=== PATIENT | male | born 1955 | race Caucasian/White ===

== ENCOUNTER 2017-04-08 16:30 | Inpatient (IN) | payer MEDICAID ==
[~2017-04-08] VITALS: Ht 170.2 cm; Wt 63.1 kg
--- NOTE | ~2017-04-08 | ENPV ---
Carotid Duplex Study Demographics Patient Name PHILLIP NOONAN Date of Study 04/11/2017 Patient Number [id number] Gender Male Date of 1955 Age 62 Visit Number [id number] Height 67 Accession Number [id number] Weight 139 Referring Candi Taylor MD Physician Jorge Rogers Physician Physician Ordering Physician Candi Roblero Field Underwriter Manager Molecular Stephon Pastrana, T Conclusions Summary Bilateral proximal internal carotid arteries have mild, 1-39%, stenosis by heterogeneous plaque. Bilateral vertebral arteries are antegrade. Procedure Type of Study: Cerebral:Carotid, Carotid Doppler Bilateral. Indications for Study:Stroke. Appropriate Use Criteria:9 Blood Pressure:Right arm 140/80 mmHg.Left arm 135/71 mmHg. Patient Status:Routine. Study Location:Inpatient Portable. Technical Quality:Adequate visualization. Velocities are measured in cm/s ; Diameters are measured in cm Carotid Right Measurements Carotid Left Measurements + +--------+--------+ + + + +--------+ --------+ + + !Location !PSV !EDV !Angle !%Stenosis ! !Location !PSV ! EDV !Angle !%Stenosis ! + +--------+--------+ + + + +--------+ --------+ + + !Prox CCA !97 !14 !60 ! ! !Prox CCA !78 ! 11 !48 ! ! + +--------+--------+ + + + +--------+ --------+ + + !Dist CCA !86 !14 !54 ! ! !Dist CCA !80 ! 18 !52 ! ! + +--------+--------+ + + + +--------+ --------+ + + !Prox ICA !80 !15 !60 !1-39% ! !Prox ICA !70 ! 18 !48 !1-39% ! + +--------+--------+ + + + +--------+ --------+ + + !Dist ICA !81 !26 !44 ! ! !Dist ICA !82 ! 24 !60 ! ! + +--------+--------+ + + + +--------+ --------+ + + !Prox ECA !100 ! !60 ! ! !Prox ECA !89 ! !60 ! ! + +--------+--------+ + + + +--------+ --------+ + + !Vertebral !60 ! !60 ! ! !Vertebral !48 ! !44 ! ! + +--------+--------+ + + + +--------+ --------+ + + !Subclavian !124 ! ! ! ! !Subclavian !120 ! ! ! ! + +--------+--------+ + + + +--------+ --------+ + + - There is antegrade vertebral flow noted on the right side. - There is antegrade verte bral flow noted on the left side. - Add'l Measurements:ICAPSV/CCAPSV 0.83.ICAEDV/CCAEDV 1.9. - Add'l Measurements:ICAPS V/CCAPSV 1.05.ICAEDV/CCAEDV 2.19. Signature dtt: DAVID MALDONADO dtd: 04/11/17 0730 Physician Self Edit
--- NOTE | ~2017-04-08 | CON ---
PATIENT'S NAME: SHAISTA PHILLIP [facility] AGE: 62 Y [address] ROOM: [id number] [place], [place] [address] LOCATION: [facility] ADMIT DATE: 04/08/2017 Consultation DISCHARGE DATE: FAMILY PHYSICIAN: PHYSICIAN, UNKNOWN ATTENDING PHYSICIAN: Ken PATEL REFERRING PHYSICIAN: JENNIFER EVANS MD A consult for hospitalist, Dr. Ken Patel. HISTORY OF PRESENT ILLNESS: This 62-year-old gentleman is referred for rehab/GIRP evaluation, admitted on 04/08 to [facility], referred from [place], [place]. As per history, he was noticed, in about 2 days' duration, initially started as having difficulty with using the left hand, and eventually it was noticed that his speech was also gibberish and at times not very understandable with inability to concentrate and use his left hand. He was having, as per history, some drinks, celebrating Father's Day 2 days earlier when he came to visit his family from [place], and eventually this happened. He was taken to [place] and was evaluated there, and by the time he was referred here, his son-in-law is telling me that his symptoms cleared. He is still confused a little bit, cannot remember details. PAST MEDICAL HISTORY: Past history of significance: Hypertension and some alcohol use on and off. PHYSICAL EXAMINATION: He is alert, not very oriented to the place and cannot really add numbers. He is not remembering his address, had some difficulty finding exactly where he was. He knew he was in [place], but not where. At the present time, can follow instructions, can move bilateral upper extremities and lower extremities freely. At the present time, his speech is clear and not wet. He has no visual cut or neglect. No facial droop. He is continent of his bowel and bladder. He has no double vision. No visual cut. No vertigo at the present time. No dizziness. Denied any palpitation. No chest pain. No discomfort. No fever. He is, at the present time, with the following vitals: Blood pressure 149/77, PATIENT'S NAME: SHAISTA [facility] AGE: 62 Y [address] ROOM: [id number] [place], [place] [address] LOCATION: [facility] ADMIT DATE: 04/08/2017 Consultation DISCHARGE DATE: FAMILY PHYSICIAN: PHYSICIAN, UNKNOWN ATTENDING PHYSICIAN: Ken PATEL temperature 98.8, pulse 63, respiration rate 18. He is 5 feet 7 inches and weighs 63.1 kg. MEDICATIONS: He is on the following medications: 1. Thiamine hydrochloride. 2. Lipitor. 3. Arcadia. 4. Labetalol. 5. Tylenol. 6. NaCl 0.9%. 7. Ativan. 8. Protonix. 9. Aspirin. 10. Nicotine. ASSESSMENT AND PLAN: He is doing well so far and has been initiated on PT and OT. I will add speech to his therapy also, and we will watch him. If he continues to do this well, I feel that he can go on outpatient basis and follow with his family physician. He should not drive and should avoid alcohol at the present time. All the above was explained to him and his family including his daughter. They verbalized understanding and agreement. Thank you for this referral. I will be following alongside with you. MD NICOLASA HUTCHINSON/kristian /[id number] d: 04/09/17 1345 t: 04/10/17 0824, CONSULTATION REPORT
--- NOTE | ~2017-04-08 | CON ---
PATIENT'S NAME: PHILLIP NOONAN [facility] AGE: 62 Y [address] ROOM: [address] [address] LOCATION: GICU ADMIT DATE: 04/08/2017 Consultation DISCHARGE DATE: FAMILY PHYSICIAN: PHYSICIAN, UNKNOWN ATTENDING PHYSICIAN: Ken POE DATE OF CONSULTATION: 04/08/2017 REFERRING PHYSICIAN: JENNIFER EVANS MD TIME SEEN: 6:15 p.m. HISTORY OF PRESENT ILLNESS: Mr. Noonan was transferred from [place], [place]. He is a 62-year-old male patient who was actually visiting from his home in [place], [place] where he lives by himself. He is a . He came here to stay at a hotel to be meeting with his family over the Father's Day weekend. He had a little bit more alcohol than usual, sort of binge drinking, and he was noted to have some weakness in his left upper extremity as well as slurring of his speech. This started yesterday sometime during the course of the day. His daughter who was with him during the day noted that his speech pattern continued to be very poor and he could not get words out. He was mumbling incoherently, even though he was alert and awake, but otherwise okay. He eventually was taken to the emergency room where a CAT scan was performed and showed evidence of an acute stroke into the left MCA territory. It was reported to us that he had profound weakness on the left side of his body, inconsistent with the left MCA stroke, but nonetheless upon his transfer here, we did not notice any weakness at all on his left side nor in his left hand. He was notably aphasic, however, could answer simple questions. He certainly was confused to cross- body commands such as touching his right face with his left thumb but was able to give certain answers to questions about where he lives, etc. He seems to be a bit fidgety and was a bit slightly agitated moving in the bed, but followed all commands on examining him. He was moving all his limbs and was not having any gaze preference. Dr. Jorge Rogers and myself spoke to the family, and we got the history that gave us some information concerning his general health. He apparently does go to a doctor. He has some benign history of hypertension, but no known diabetes. His alcohol use has somewhat abated. His daughter says that he drinks about 5 beers every day, but denies that he drinks any hard alcohol. It should be noted that the patient was put on a CIWA protocol due to the fact that he seemed to be having some alcohol withdrawal symptoms consistent with some agitation and fidgetiness. PAST MEDICAL HISTORY: Noted hypertension, unknown history of any coronary issues. PATIENT'S NAME: PIHLLIP NOONAN [facility] AGE: 62 Y [address] ROOM: [id number] [place], [place] [address] LOCATION: [facility] ADMIT DATE: 04/08/2017 Consultation DISCHARGE DATE: FAMILY PHYSICIAN: PHYSICIAN, UNKNOWN ATTENDING PHYSICIAN: Ken POE PAST SURGICAL HISTORY: He had prior surgery involving right shoulder x2. Also had some chronic issues with low back pain and had surgery in the past on his low back. He gets some back pain treatment every 6 months for chronic back pain. Also had some type of testicular surgery back in June of 2016. FAMILY HISTORY: His mother did have a stroke and his father had emphysema. Sister has some mild dementia. ALLERGIES: NO KNOWN DRUG ALLERGIES. CURRENT MEDICATIONS: 1. Did include lisinopril. 2. He has been started on aspirin presently with plans to place the patient on a cholesterol-lowering medicine based on his new stroke. SOCIAL HISTORY: He smokes at least 1-1/2 packs of cigarettes a day. He is not employed. He is retired presently. 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 Again, he resides in [place], [place]. He lost his a number of years ago. He lives alone. REVIEW OF SYSTEMS: The patient presents with aphasia. No significant weakness is noted, though he did have some weakness supposedly in his left upper extremity. It seemed to have been somewhat transient. I do not appreciate any weakness presently. He has some difficulty with word finding. Review of systems otherwise is nonsignificant here. Has a questionable history of alcohol abuse, though the family denies this. PHYSICAL EXAMINATION: GENERAL: The patient is upright sitting in bed. He is somewhat private, does not answer questions very easily, but answers them appropriately. He follows all commands during the physical. NEUROLOGIC: He is noted to have paraphasic errors, but far less slurring of his speech is reported by his family presently. I am able to understand many of the words but a good 50% of words I cannot understand what he is trying to say. Simple words such as forehead, face, and nose are difficult for him to comprehend. He does not display any facial droop. Of note, the rest of cranial nerve exam 2 through 12 was intact. I did not appreciate any pronator drift. His physical exam on motor power is 5/5 with normal bulk and tone. Sensory exam is intact. He does not have any ignorance of one side of his body. He has full withdrawal to pain in all his limbs. PATIENT'S NAME: PHILLIP NOONAN [facility] AGE: 62 Y [address] ROOM: [place] [address] LOCATION: [facility] ADMIT DATE: 04/08/2017 Consultation DISCHARGE DATE: FAMILY PHYSICIAN: PHYSICIAN, UNKNOWN ATTENDING PHYSICIAN: Ken POE IMPRESSION: Mr. Noonan was transferred here from [place], [place], where he came in with acute onset of aphasia and was found to have on CAT scan a new stroke involving the left middle cerebral artery territory. His stroke potentially could involve some motor weakness, though he does not have any presently. It is mostly a motor speech deficit. Now, he does seem to understand commands. We did place the patient on CIWA protocol out of fear that he may have some alcohol withdrawal symptomatology, and I think that is appropriate. We will get an MRI of the brain along with an MRA to better understand if he has acute left middle cerebral artery stroke with a thrombus. A TTE will be performed for evidence of any cardiomyopathy of valvular disease as well as getting a workup with a duplex sonogram. The patient should be placed on daily aspirin 81 mg p.o. daily along with Lipitor 80 mg p.o. daily. We think that the patient will make a good recovery. In general, though his aphasia is somewhat moderate at this time, it may take certainly a few weeks for him to make a good improvement with his general speech. A speech evaluation will be requested. MD NESTOR CURRY/kristian /[id number] d: 04/09/17 0049 t: 04/26/17 1728, CONSULTATION REPORT
--- NOTE | ~2017-04-08 | DS ---
PATIENT'S NAME: SHAISTA [facility] AGE: 62 Y [address] ROOM: [id number] [place], [place] [address] LOCATION: [facility] ADMIT DATE: 04/08/2017 Discharge Summary DISCHARGE DATE: 04/11/2017 FAMILY PHYSICIAN: Jose Ramos ATTENDING PHYSICIAN: Ken Patel ADMITTING DIAGNOSIS: Acute stroke. DISCHARGE DIAGNOSIS: Acute stroke. SECONDARY DIAGNOSES: 1. Tobacco use. 2. Hypertension. 3. Alcohol abuse. PROCEDURES: MRI of brain, echocardiogram, and carotid Doppler. CONSULTATION: Neurology, Dr. Christopher. HISTORY OF PRESENTING ILLNESS: The patient is 62-year-old gentleman with past medical history of hypertension, COPD, and tobacco use, who presents here from [place] with left middle cerebral artery distribution stroke on CT. The patient is originally from [place] who came to [facility] to visit family and was noted to have left upper extremity weakness and expressive aphasia. The patient was out of tPA window treatment. The patient was transferred to our hospital for further care. HOSPITAL COURSE: The patient was admitted and was started on aspirin and statin. MRI shows acute left MCA distribution infarcts and small area of acute ischemia at the mid right anabel-cerebellum. The patient was placed on telemonitor. No signs of AFib during his stay. The patient's expressive aphasia improved during his stay. However, the patient still has residual expressive aphasia. MRA of the brain shows nonvisualization of several of the branched vessels of the left MCA distal to the trifurcation, which may present slow flow or occlusion. 1. Carotid Doppler preliminary report shows bilateral 0-30% stenosis. An echocardiogram shows normal LV to RV size, EF of 60% to 65%. Normal diastolic LV function. No significant valvular abnormality. No pericardial effusion. The patient was discharged in stable condition. The patient was told to follow up with his primary care physician at [place] to have cardiac event monitor, as there is a significant suspicion for AFib. The patient was also told not to drive until he is seen by primary care physician. The patient okay to go home. He will go home with family member, his daughter and son-in-law. PATIENT'S NAME: SHAISTA [facility] AGE: 62 Y [address] ROOM: [id number] [place], [place] [address] LOCATION: GICU ADMIT DATE: 04/08/2017 Discharge Summary DISCHARGE DATE: 04/11/2017 FAMILY PHYSICIAN: , Jose ATTENDING PHYSICIAN: Ken Patel CONDITION: Stable. DISPOSITION: Home. DISCHARGE MEDICATIONS: See MAR. DISCHARGE INSTRUCTIONS: Not to drive until being seen by primary care physician and also follow up with primary care physician for possible cardiac event. FOLLOWUP: Follow up with primary care physician. Greater than 30 minutes was spent on discharge planning. MD MATTHEW HOU/kristian /[id number] d: 04/12/17 0329 t: 04/15/17 1752, DISCHARGE SUMMARY
--- NOTE | ~2017-04-08 | HP ---
PATIENT'S NAME: SHAISTA [facility] AGE: 62 Y [address] ROOM: [place] [address] LOCATION: [facility] ADMIT DATE: 04/08/2017 History & Physical DISCHARGE DATE: FAMILY PHYSICIAN: PHYSICIAN, UNKNOWN ATTENDING PHYSICIAN: Ken POE DATE OF SERVICE: CHIEF COMPLAINT: Stroke. HISTORY OF PRESENT ILLNESS: The patient is a 62-year-old gentleman with past medical history of hypertension, COPD, and tobacco use, who presents here from [place] with left middle cerebral artery distribution stroke. The patient originally from [place] and came to [place], [place] with family. Last noted normal was around 11:00 p.m., where the patient and his family were having get-together green party. According to daughter Alexandra, the patient had one too many drink during that event. However, the patient was noted this morning to have difficulty speaking and also was noted to have some difficulty grasping in the left upper extremity. The patient was brought in to [facility] Emergency Department for further evaluation. CT done at [facility] showed acute ischemia in the distribution of left middle cerebral artery with no intracranial hemorrhage. The patient was transferred to our facility for further evaluation and neurology consult. According to daughter, the patient has a history of tobacco use. Smokes close to two packs a day and also has a history of alcohol abuse. She reports that he drinks close to 5-6 beer a day. 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 PAST MEDICAL HISTORY: Hypertension, COPD, osteoporosis, and hard of hearing. SURGICAL HISTORY: Shoulder surgery and back surgery, FAMILY HISTORY: Mom had a stroke and dementia. Dad has emphysema and COPD. 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 MEDICATIONS: Currently being reconciled. PATIENT'S NAME: SHAISTA [facility] AGE: 62 Y [address] ROOM: [id number] [place], [place] [address] LOCATION: [facility] ADMIT DATE: 04/08/2017 History & Physical DISCHARGE DATE: FAMILY PHYSICIAN: PHYSICIAN, UNKNOWN ATTENDING PHYSICIAN: Ken POE REVIEW OF SYSTEMS: Unable to fully obtain due to patient's expressive aphasia. PHYSICAL EXAMINATION: VITAL SIGNS: Afebrile, blood pressure 112/68, heart rate of 77, respiratory rate 15, saturating 97 on room air. GENERAL APPEARANCE: The patient is awake, in no acute distress. HEAD: Normocephalic. EYES: Extraocular muscles intact. Peripheral visual intact. MOUTH: Moist oral mucosa. CHEST: Clear to auscultation bilaterally. HEART: Regular rate and rhythm. No murmurs, rubs, or gallops. ABDOMEN: Mild epigastric tenderness. No guarding. No rebound. Soft. Nondistended. Bowel sounds present. EXTREMITIES: No edema. SKIN: Warm to touch. No lesion noted. MUSCULOSKELETAL: Range of motion intact. No obvious joint effusion noted. ENGINE RESEARCH ENGINEER: The patient alert and oriented x1, only oriented to self. Motor and sensory grossly intact. The patient has intermittent anomia and exhibit expressive aphasia. LABORATORY DATA: Done at outside hospital shows hemoglobin of 13.6, white blood cell of 6.8, and, platelet 148. Sodium of 132, potassium 3.6, CO2 of 20.4, creatinine 0.55, and BUN is 6. ASSESSMENT AND PLAN: 1. Acute ischemic cerebrovascular accident. The patient is 62-year-old gentleman with history of tobacco use and alcohol abuse and hypertension, who presents here with acute ischemia in the distribution of left middle cerebral artery from outside hospital. Etiology most likely secondary to embolic. The patient is not a candidate for tPA. His last time noted to be normal was yesterday. To continue aspirin 81 mg. The patient has received aspirin at outside hospital. We will start the patient on Lipitor 80 mg. Since he is not 24 hours, we will allow permissive hypertension to treat only for systolic blood pressure greater than 220 and diastolic greater than 110. We will acquire MRI brain without contrast, MRA of head without contrast and carotid Doppler. We will also acquire echocardiogram. To continue with serial neurological examination. Physical Therapy and Occupational Therapy to see the patient. To acquire the fasting lipid profile in the morning. To continue tele monitoring. 2. Hypertension. We will hold antihypertensive to allow permissive hypertension. PATIENT'S NAME: PHILLIP NOONAN [facility] AGE: 62 Y [address] ROOM: [address] [address] LOCATION: [facility] ADMIT DATE: 04/08/2017 History & Physical DISCHARGE DATE: FAMILY PHYSICIAN: PHYSICIAN, UNKNOWN ATTENDING PHYSICIAN: Ken POE 3. Alcohol abuse. We will place patient on CIWA protocol. Give the patient thiamine. 4. Epigastric pain. I suspect the patient have pancreatitis with history of alcohol abuse. We will acquire lipase level. We will hold imaging for now. We will continue IV fluid treatment. 5. Tobacco abuse. Greater than 3 minutes, but less than 10 minutes were spent on tobacco cessation. It is difficult to understand whether the patient is ready to quit smoking as the patient has expressive aphasia. However, we will start the patient on nicotine patch 21 mg. Greater than 60 minutes were spent on the patient's care. Plan and care were discussed with Dr. Christopher in Neurology and also Alexandra, the patient's daughter. Discussion was made about code status was daughter Alexandra on admission code status full code. She said she is awaiting for his living will to be sent. Code status, full code. LUI CHAVEZ MD AD/modl /[id number] D: [id number] T: [id number] HISTORY & PHYSICAL
--- NOTE | ~2017-04-08 | ECHO ---
Transthoracic Echocardiography Report (TTE) Demographics Patient Name PHILLIP NOONAN Date of Study 04/10/2017 Patient Number [id number] Visit Number [id number] Date of 1955 Room Number [id number] Gender Male Number Age 62 year(s) Referring Jorge Rogers Seo Executive Corrine Tai, Physician RT,RVT,RDCS Physician Interpreting Edwin Longo MD Class C Truck Driver Physician Supervising Ordering Jogre Rogers MD/MLP Physician Nurse Stress Drywall Sander Conclusions Contractility Score Summary Normal Left Ventricular contractility was noted. Summary Normal LV/RV size and systolic function. The estimated left ventricular ejection fraction is 60-65%. Diastolic flow assessment reveals normal diastolic LV function . No significant valvular abnormalities. No pericardial effusion. Procedure Type of Study TTE procedure:2D Echocardiogram, M-Mode, Doppler , Color Doppler. Procedure Date Date: 04/10/2017 Start: 02:34 PM Study Location: Inpatient Portable Technical Quality: Adequate visualization Indications:CVA. Appropriate Use Criteria: 9 Patient Status: Routine HR: 58 bpm BP: 137/67 mmHg M-Mode/2D Measurements LV Diastolic Dimension: 4.23 cm LV Systolic Dimension: 2.76 cm LV Septum Diastolic: 0.95 cm LV Septum Systolic: 0.89 cm LV PW Diastolic: 1.11 cm LV PW Systolic: 1.25 cm Cardiac Output: 3.92 l/min AO Root Dimension: 3.5 cm RV Diastolic Dimension: 2.5 cm LA Dimension: 2.9 cm EF Estimated: 65 % MV EPSS: 0.9 cm LVOT: 2 cm LVOT VTI: 21.5 cm LV Stroke volume: 67.51 ml Doppler Measurements AV Peak Velocity: 1.35 m/s MV Peak E-Wave: 1.18 m/s AV Peak Gradient: 7.29 mmHg MV Peak A-Wave: 1.04 m/s AV Mean Gradient: 3 mmHg MV E/A Ratio: 1.13 LVOT Peak Velocity: 1 m/s MV P1/2t: 68 msec TR Gradient:22.85 mmHg Estimated RAP:10 mmHg Estimated PASP: 32.85 mmHg Estimated RVSP: 33 mmHg A' Septal Velocity: 0.1 m/s E' Septal Velocity: 0.1 m/s MV E/E' Ratio: 12.1 Findings Left Ventricle Normal left ventricle size and function. Diastolic assessment reveals normal relaxation. Right Ventricle Normal right ventricle structure and function. Left Atrium Normal left atrial size. Right Atrium Normal right atrial size. IVC imaging is consistent with normal RA pressures. Mitral Valve Normal mitral valve structure and function. Trace MR. Aortic Valve Normal aortic valve structure and function. Tricuspid Valve Mild tricuspid regurgitation by color Doppler. Pulmonic Valve Normal pulmonic valve structure and function. Pericardial Effusion No pericardial effusion. Miscellaneous Visualized portions of the aortic root and ascending aorta appear normal in size. Pleural Effusion No evidence of pleural effusion. Contractility Score LV regional wall motion:(0-Non visualized 1-Normal 2-Hypokinesis 3-Akinesis 4-Dyskinesis 5-Aneurysm) Signature dtt: ROBI MARKS dtd: 04/10/17 [id number] Physician Self Edit
[2017-04-08 20:12] LABS: ALBUMIN 3.5 gm/dL (3.5-5.0); ALK PHOS 93 IU/L (33-138); ALT 53 IU/L (12-78); AST 44 IU/L (10-40); TOTAL BILIRUBIN 0.9 mg/dL (0.0-1.5); TOTAL PROTEIN 6.5 g/dL (6.0-8.4)
[2017-04-09] MEDS ORDERED: ZOLPIDEM TARTRA10 MG PO (00:44)
[2017-04-09] MEDS ORDERED: LISINOPRIL20 MG PO (01:18)
[2017-04-09] MEDS ORDERED: SPIRIVA HANDIHA1 KIT INH (01:20)
[2017-04-09] MEDS ORDERED: NORCO 10-325 T1 EACH PO (01:21)
[2017-04-09] MEDS ORDERED: ARMODAFINIL250 MG PO (01:22)
[2017-04-09] MEDS ORDERED: ALENDRONATE SOD70 MG PO (01:26)
[2017-04-09] MEDS ORDERED: COMBIVENT RESPIM4 GM INH (01:29)
[2017-04-09] MEDS ORDERED: "\\\"PREP SPRAY\\\"-TIN4 OZ" (01:29)
--- NOTE | 2017-04-09 02:53 | NUR ---
PATIENT CAME FROM [facility]. THEY SAID HE HAD LEFT SIDED WEAKNESS, LEFT SIDED FACIAL DROOP AND APHASIA. UPON ARRIVAL, PATIENT HAD APHASIA WITH NO LEFT SIDED WEAKNESS OR FACIAL DROOP. PATIENT STARTING HAVING STROKE SYMPTOMS THE DAY BEFORE HE CAME IN, 04/07 - LEFT SIDED WEAKNESS AND SLURRED SPEECH. HE HAS NO KNOW ALLERGIES. HE HAD HIS PNEUMONIA SHOT TWO YEARS AGO. HE HAS A HX OF COPD, SMOKES 2PACKS/DAY. PNEUMONIA 2X/YEAR, HX BLOODY STOOLS, ALCOHOL ABUSE, DEPRESSION, SPINAL FUSIONS, BILATERAL HEARING AIDS.
--- NOTE | 2017-04-09 05:03 | NUR ---
Significant Event: ALERT TO SELF, . D/O TO PLACE AND TIME. DENIES NUMBNESS AND TINGLING. MODERATE, EQUAL STRENGTH. APHASIC. SLURRED SPEECH. PUPILS 3.0 AND BRISK. STROKE SCALE 4. LUNGS CLEAR, ON ROOM AIR. SINUS RHYTHM. SBP 110S-150S. HR 50S-70S. UP 1 ASSIST TO BATHROOM. PAIN TO BACK - CHRONIC. GAVE 1 TAB OF 10/325 NORCO. IV TO RIGHT FOREARM RUNNING NORMAL SALINE AT 150ML/HR. ON CIWA FOR DRINKING ALCOHOL DAILY. SCORES 4 - FOR DISORIENTATION. CARDIAC DIET. Follow up: CAROTIDS, ECHO, MRI, MRA TODAY. FAMILY TO BRING ADVANCE DIRECTIVE
--- NOTE | 2017-04-09 08:26 | NUR ---
CONSULT FOR NUTRITION EDUCATION FOR STROKE NOTED. WILL COMPLETE PRIOR TO DISMISSAL.
--- NOTE | 2017-04-09 16:31 | NUR ---
Significant Event:Patient is alert and oriented. NIH-SS 4- Moderate receptive/ expressive aphasia. PERRLA. Denies numbness or tingling. Moves extremities spontaneously and on command when shown what to do. Lungs clear throughout. VSS on room air. Call MD if SBP less than 110. NSR. Bowel sounds active, no bm this shift. Accu checks were dc'd this shift. Patient complaints of chronic back pain, [place] given for pain with minimal relief, patient expresses that ambulation helps the most with his pain. Patient takes medications without difficulty. Peripheral IV to the right forearm has NS infusing at 50ml/hr, order to saline lock when this bag of fluids is empty. Cardiac diet. Nicotine patch in place. PT/OT/Speech therapy in place. Son and Daughter in law at the bedside. Follow up:
--- NOTE | 2017-04-10 03:54 | NUR ---
Significant Event: HANDED OVER CARES TO ALEX ERA AT 2330. PATIENT A/OX3. DENIES NUMBNESS AND TINGLING. MODERATE, EQUAL STRENGTH. APHASIA - EXPRESSIVE AND RECEPTIVE. STROKE SCALE 2. LUNGS CLEAR ON ROOM AIR. SINUS RHYTHM. GAVE 1 TAB 10/325 NORCO FOR CHRONIC BACK PAIN. IV TO RIGHT FOREARM RUNNING NORMAL SALINE AT 50ML/HR. CARDIAC DIET. CIWA 0. Follow up:
--- NOTE | 2017-04-10 04:57 | NUR ---
Significant Event:Patient oriented to self, refused to answer other orientation questions. Up with standby assist. C/o pain to back with [place] given at 2359. Family and patient stated they did not want him woken up to assess him again. They wanted him assessed when he woke up to go to the bathroom. At 0440, lab attempted to do a blood draw on him. Patient refused lab draw. But wanted to get up to bathroom. Assisted him to bathroom. Upon returning to bed, asked for a set of vital signs. Patient empatically refused. PIV saline locked. Follow up:Monitor for pain. NIHSS. Carotids and Echo today.
--- NOTE | 2017-04-10 16:45 | NUR ---
Significant Event: Patient is A&O x3. Follows commands when he wants. Equal strength in all extremities. Denies numbness & tingling. Pupils equal & brisk. Speech is slurred and he is fairly aphagic. NIHSS = 2. Becomes easily agitated and does not like to cooperate. Family does not like us asking him questions or waking him up. MD aware and spoke with them about why we do that and family & patient are doing some better. Complains of pain in his back and I gave him 1 [place] last at 1611 with relief noted. IV to R) FA SL. Up with family assist. Refuses gait belt or alarms of any kind. Family will shut off all alarms. Family at bedside. Follow up: ? home tomorrow, monitor neuro.
--- NOTE | 2017-04-11 04:13 | NUR ---
Significant Event: Patient is alert and oriented x 3. Denies numbness or tingling. Does c/o chronic back pain relieved with [place]. Moves spontaneously and follows commands with equal strength in all extremities. PERRLA. 2+ pulses. Lungs clear and diminished on room air. VSS. HTN-SBP 130s. HR bradycardic to SR. NIHSS-2 for aphasia and slurred speech. Patient was tired on assessment and states this is why they were worse and that he was doing better during the day. Overall pleasant and cooperative with cares and understood necessity for what was being done. Voids per restroom. Bowel sounds active. Cardiac diet with good appetite. Family at bedside and assists with transfers and walking patient in the hallway. Have started to use a gait belt but refuse to use the bed alarm. Refused 3rd assessment d/t sleeping. Did push call light appropriately to let staff know he was awake for his second assessment. Patient stated not to awaken him and he would call during the night d/t he was tired and had no rest the night before. IV SL with no complications to right forearm. Refuses SCDs. Follow up: carotids to be done and read (hopefully early) as patient is hoping to discharge home this morning to [facility]
[2017-04-11] MEDS ORDERED: ASPIRIN (CHILDR81 MG PO (11:05)
[2017-04-11] MEDS ORDERED: LIPITOR80 MG PO (11:06)
[2017-04-11] MEDS ORDERED: NICOTINE PATCH1 EAC1 TRANS (11:08)
--- NOTE | 2017-04-11 13:09 | NUR ---
1230 Stopped up to visit jesus Doherty and his family but ADRIAN Yost tells me that he has been dismissed already. He dismissed to home with family earlier this morning. CM to continue to follow and assist.
== END 2017-04-11 11:38 | disposition disaster alternative care site (69) | DRG 65 ==
LOC: GICU 17:25
PROVIDERS: ADMIT Internal Medicine
PROC: B246ZZZ Ultrasonography of Right and Left Heart (ICD-10-PCS; principal; 2017-04-10)
DX: I63.512 Cerebral infarction due to unspecified occlusion or stenosis of left middle cerebral artery (principal); F10.239 Alcohol dependence with withdrawal, unspecified; R47.01 Aphasia; I10 Essential (primary) hypertension; I48.91 Unspecified atrial fibrillation; J44.9 Chronic obstructive pulmonary disease, unspecified; M81.0 Age-related osteoporosis without current pathological fracture; Z72.0 Tobacco use
CPT/HCPCS: G0480; J7030